=== PATIENT | male | born 1945 | race African-American/Black ===

== ENCOUNTER 2018-07-01 10:20 | Outpatient (RCR) | payer MEDICARE, OTHER ==
[2018-07-01] MEDS ORDERED: MINERAL OIL/PETROLAT/GLYCERI 6OZ BTL ONE (12:12)
== END 2018-07-22 ==
LOC: WCC 10:20
PROVIDERS: ATTEND Plastic Surgery
DX: E11.8 Type 2 diabetes mellitus with unspecified complications (principal); I87.312 Chronic venous hypertension (idiopathic) with ulcer of left lower extremity; L97.322 Non-pressure chronic ulcer of left ankle with fat layer exposed; I89.0 Lymphedema, not elsewhere classified; R60.1 Generalized edema; I87.2 Venous insufficiency (chronic) (peripheral); I10 Essential (primary) hypertension; I50.9 Heart failure, unspecified

== ENCOUNTER 2021-11-25 11:15 | Outpatient (RCR) | payer MEDICARE, OTHER | END 2021-12-20 | LOC: WCC 11:15 | PROVIDERS: ATTEND Internal Medicine Infectious Disease | DX: E11.8 Type 2 diabetes mellitus with unspecified complications (principal); B37.89 Other sites of candidiasis; L08.9 Local infection of the skin and subcutaneous tissue, unspecified; I87.2 Venous insufficiency (chronic) (peripheral); I89.0 Lymphedema, not elsewhere classified; L98.9 Disorder of the skin and subcutaneous tissue, unspecified; I10 Essential (primary) hypertension; I50.9 Heart failure, unspecified; H40.9 Unspecified glaucoma ==